=== PATIENT | female | born 1950 | race Caucasian/White ===

== ENCOUNTER → 2019-04-16 | Day surgery (SDC) | payer OTHER ==
[~2019-04-16] MED LIST: ENALAPRIL-HCTZ1 EACH PO; IBUPROFEN400 MG PO; NEURONTIN800 MG PO
== END | disposition home or self-care (01) ==
LOC: ADM 04-11 10:45 → CIR.AMB 10:20
DX: N84.0 Polyp of corpus uteri (principal)